=== PATIENT | male | born 2000 | race African-American/Black ===

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

== ENCOUNTER 2018-03-19 02:08 | Emergency (ER) | payer SELFPAY ==
[~2018-03-19] VITALS: Ht 180.3 cm; Wt 142.9 kg
[~2018-03-19 02:08] MED LIST changes: +CYCL10TA9 PO; +NAPR-1071 PO; +PRD20T PO
[2018-03-19] MEDS ORDERED: IBUPROFEN 800 MG (MOTRIN) TAB PO STA (02:45)
[2018-03-19] MEDS ORDERED: ACETAMINOPHEN 500 MG TAB (TYLENOL) PO STA (02:45)
[2018-03-19] MEDS ORDERED: RX-OSELTAMIVIR 75 MG (TAMIFLU) BOX OF 10 PO STA (03:19)
--- NOTE | 2018-03-19 03:20 | ED Cough/URI ---
General Chief Complaint: Cough/Cold/Flu Symptoms Stated Complaint: COUGHING,POSS FEVER 102. Source: patient History of Present Illness Date Seen by Provider: Mar 19, 2018 Time Seen by Provider: 02:40 Initial Comments PT ARRIVES VIA POV FROM HOME WITH MOM, WHO IS ALSO BEING SEEN FOR SAME MOM HAS BEEN SICK FOR A WEEK PT JUST STARTED HAVING SYMPTOMS TUESDAY NIGHT 03/17/18 C/O COUGH AND CONGESTION--NON-PRODUCTIVE C/O FEVER --WAS 102 AT 2000 WHILE AT WORK TONIGHT--BOTH PT AND MOM WORK AT [employer]. C/O BODY ACHES C/O HEADACHE C/O SORE THROAT TOOK TYLENOL AT 2000 AT WORK TONIGHT, OTHERWISE HAS NOT TAKEN ANYTHING FOR SYMPTOMS PCP: DR. Valorie CORRAL Allergies and Home Medications Allergies Coded Allergies: No Known Drug Allergies (Unverified , 09/28/16) Home Medications Cyclobenzaprine HCl 10 Mg Tablet, 10 MG PO Q8H PRN for SPASMS Prescribed by: JANA PEREIRA on 11/29/162226 Naproxen 500 Mg Tablet, 500 MG PO BID Prescribed by: JANA PEREIRA on 11/29/162226 Oseltamivir Phosphate 75 Mg Cap, 75 MG PO BID Prescribed by: MATT DE LEON on 03/19/185 Prednisone 20 Mg Tab, 40 MG PO DAILY Prescribed by: JANA PEREIRA on 11/29/162226 Patient Home Medication List Home Medication List Reviewed: Yes Review of Systems Review of Systems Constitutional: see HPI, fever EENTM: see HPI, nose congestion, throat pain Respiratory: see HPI, cough; No short of breath, No wheezing Cardiovascular: no symptoms reported Gastrointestinal: no symptoms reported Genitourinary: no symptoms reported Musculoskeletal: see HPI (BODY ACHES) Skin: no symptoms reported Psychiatric/Neurological: See HPI, Headache Hematologic/Lymphatic: No Symptoms Reported Immunological/Allergic: no symptoms reported Past Fzunjea-Ouhwro-Hmbxse Hx Patient Social History Alcohol Use: Denies Use Recreational Drug Use: No Smoking Status: Never a Smoker 2nd Hand Smoke Exposure: No Recent Foreign Travel: No Contact w/Someone Who Travel: No Recent Hopitalizations: No Immunizations Up To Date Tetanus Booster (TDap): Less than 5yrs PED Vaccines UTD: Yes Seasonal Allergies Seasonal Allergies: No Past Medical History Surgeries: Yes (BMT) Ear Surgery Respiratory: No Cardiac: No Neurological: No Reproductive Disorders: No Sexually Transmitted Disease: No Genitourinary: No Gastrointestinal: No Musculoskeletal: No Endocrine: No HEENT: Yes Chronic Ear Infection, Tonsilitis Cancer: No Psychosocial: No Integumentary: No Blood Disorders: No Family Medical History No Pertinent Family Hx Physical Exam Vital Signs - First Documented Capillary Refill : Height: 5'10.00" Weight: 289lbs. 0oz. 131.517125xc; 35.15 BMI Method:Stated General Appearance: WD/WN, no apparent distress HEENT: PERRL/EOMI, TMs normal, other (NASAL MUCOSAL EDEMA AND CLEAR POST NASAL DRAINAGE. SLIGHT ERYTHEMA TO POSTERIOR PHARYNX) Neck: normal inspection Respiratory: normal breath sounds, no respiratory distress, no accessory muscle use Cardiovascular: regular rate, rhythm, no murmur Gastrointestinal: non tender, soft Extremities: normal inspection, normal capillary refill Neurologic/Psychiatric: fueler II-XII nml as tested, no motor/sensory deficits, alert, normal mood/affect, oriented x 3 Skin: normal color, warm/dry; No rash Progress/Results/Core Measures Suspected Sepsis SIRS Temperature: Pulse: Respiratory Rate: Blood Pressure / Mean: Results/Orders Lab Results Laboratory Tests Test 03/19/18 02:59 Range/Units Group A Streptococcus Screen NEGATIVE NEGATIVE Micro Results Microbiology 03/19/18 Influenza Types A,B Antigen (SAUL) - Final, Complete My Orders Orders - MATT DE LEON DO Influenza A And B Antigens (03/19/18 02:37) Rapid Strep A Screen (03/19/18 02:45) Acetaminophen Tablet (Tylenol Tablet) (03/19/18 02:45) Ibuprofen Tablet (Motrin Tablet) (03/19/18 02:45) Rx-Oseltamivir Caps (Rx-Tamiflu Caps) (03/19/18 03:19) Oseltamivir 75 Mg Capsule (Tamiflu 75 (03/19/18 03:30) Oseltamivir 75 Mg Capsule (Tamiflu 75 (03/19/18 03:25) Medications Given in ED Current Medications Medications Dose Ordered Sig/Elliot Route Start Time Stop Time Status Last Admin Dose Admin Oseltamivir Phosphate 75 mg ONCE ONCE PO 03/19/18 03:30 03/19/18 03:31 DC 03/19/18 03:29 75 MG Vital Signs/I&O 03/19/18 03/19/18 03/19/18 02:28 02:28 03:33 Temp 102.3 102.4 Pulse 97 97 Resp 19 18 B/P (MAP) 150/71 (97) 124/51 (75) Pulse Ox 97 98 O2 Delivery Room Air Room Air Room Air Capillary Refill : Departure Impression Primary Impression: Influenza-like syndrome Disposition: HOME, SELF-CARE Condition: Stable Departure-Patient Inst. Referrals: SANJUANA CORRAL MD (PCP/Family) Primary Care Physician Patient Instructions: Flu, Adult (DC) Add. Discharge Instructions: TAKE TAMIFLU TWICE A DAY FOR 5 DAyS LOTS OF CLEAR LIQUIDS TYLENOL 1 GRAM / MOTRIN 800 MG 4 TIMES A DAY FOR PAIN OR FEVER OVER THE COUNTER MEDICATIONS FOR COUGH AND CONGESTION FOLLOW UP WITH YOUR DR IN 3-4 DAYS IF NO BETTER All discharge instructions reviewed with patient and/or family. Voiced understanding. Scripts Oseltamivir Phosphate (Tamiflu) 75 Mg Cap 75 MG PO BID, #10 CAP Prov: MATT DE LEON DO 03/19/18 MATT DE LEON DO Mar 19, 2018 03:19
[2018-03-19] MEDS ORDERED: OSELTAMIVIR 75 MG (TAMIFLU) CAPSULE ONE (03:25)
[2018-03-19] MEDS ORDERED: OSLT75C PO (03:25)
[2018-03-19] MEDS ORDERED: OSELTAMIVIR 75 MG (TAMIFLU) CAPSULE PO ONE (03:30)
[2018-03-19 03:33] VITALS: BP 124/51
== END 2018-03-19 03:33 | disposition home or self-care (01) ==
LOC: EDUNIT# 02:08 → ER 02:12
DX: J10.1 Influenza due to other identified influenza virus with other respiratory manifestations (principal); Z79.52 Long term (current) use of systemic steroids
CPT/HCPCS: 87430; 87804

== ENCOUNTER 2020-05-08 20:31 | Emergency (ER) | payer SELFPAY ==
[~2020-05-08] VITALS: Ht 180.3 cm; Wt 160.0 kg
[~2020-05-08 20:31] MED LIST changes: +OSLT75C PO
[2020-05-08] MEDS ORDERED: TETRACAINE 0.5% OPHTH SOLN 4 ML BTL (SINGLE DOSE ONLY) ONE (20:43)
[2020-05-08] MEDS ORDERED: FLUORESCEIN (FLUOR-I-STRIPS) 1 MG STRP ONE (20:43)
--- NOTE | 2020-05-08 20:53 | ED EENT ---
History of Present Illness General Chief Complaint: Eye Problems Stated Complaint: R EYE PAIN Source: patient Exam Limitations: no limitations History of Present Illness Date Seen by Provider: May 08, 2020 Time Seen by Provider: 20:29 Initial Comments The patient presents to the ER by private conveyance with chief complaint of painful welt on the very front of his eye over the pupil on the right side. He woke up with it this morning. He does not recall getting anything in his eye or striking his eye. He does not ever have a history of problems with his vision before. He has a little blurriness but no double vision. No other significant medical history. Follows with Jermain Love. Allergies and Home Medications Allergies Coded Allergies: No Known Drug Allergies (Unverified , 09/28/16) Home Medications Cyclobenzaprine HCl 10 Mg Tablet, 10 MG PO Q8H PRN for SPASMS Prescribed by: JANA PEREIRA on 11/29/162226 Naproxen 500 Mg Tablet, 500 MG PO BID Prescribed by: JANA PEREIRA on 11/29/162226 Oseltamivir Phosphate 75 Mg Cap, 75 MG PO BID Prescribed by: MATT DE LEON on 03/19/18 0325 Prednisone 20 Mg Tab, 40 MG PO DAILY Prescribed by: JANA PEREIRA on 11/29/162226 Patient Home Medication List Home Medication List Reviewed: Yes Review of Systems Review of Systems Constitutional: No chills, No fever Eyes: See HPI; Denies Blindness; Blurred Vision Ears: Denies Dizziness, Denies Pain Nose: denies clots, denies congestion Mouth: denies clots, denies clear discharge Throat: denies neck stiffness, denies painful swallowing Respiratory: No dyspnea on exertion, No hemoptysis Cardiovascular: No chest pain, No palpitations All Other Systems Reviewed Negative Unless Noted: Yes Past Alfkjrj-Zjtohp-Oicsvz Hx Patient Social History Alcohol Use: Denies Use Recreational Drug Use: No Smoking Status: Never a Smoker 2nd Hand Smoke Exposure: No Recent Foreign Travel: No Contact w/Someone Who Travel: No Recent Hopitalizations: No Immunizations Up To Date Tetanus Booster (TDap): Less than 5yrs PED Vaccines UTD: Yes Seasonal Allergies Seasonal Allergies: No Past Medical History Surgeries: Yes (BMT) Ear Surgery Respiratory: No Cardiac: No Neurological: No Reproductive Disorders: No Sexually Transmitted Disease: No Genitourinary: No Gastrointestinal: No Musculoskeletal: No Endocrine: No HEENT: Yes Chronic Ear Infection, Tonsilitis Cancer: No Psychosocial: No Integumentary: No Blood Disorders: No Family Medical History No Pertinent Family Hx Physical Exam Vital Signs Vital Signs - First Documented 05/08/20 20:40 Temp 36.2 Pulse 83 Resp 18 B/P (MAP) 145/86 (105) Pulse Ox 98 Height, Weight, BMI Height: 5'11.00" Weight: 315lbs. 0oz. 142.094814pm; 35.15 BMI Method:Stated General Appearance: WD/WN, mild distress Eyes: right eye other (Cloudy vesicle over the cornea covering the pupil on the right eye with no other obvious defect, foreign debris etc. Injected conjunctive with some tearing.); left eye normal inspection; bilateral eye PERRL, bilateral eye EOMI Ears: bilateral ear auricle normal, bilateral ear canal normal, bilateral ear TM normal Nose: normal inspection; No active bleeding, No discharge Mouth/Throat: normal mouth inspection, pharynx normal, dental tenderness Neck: non-tender, full range of motion, supple Cardiovascular: normal peripheral pulses, regular rate, rhythm Respiratory: no respiratory distress, no accessory muscle use Progress/Results/Core Measures Results/Orders My Orders Orders - SUJEY CERDA Tetracaine 0.5% Ophth Lori Sdv (Tetracai (05/08/20 21:00) Fluorescein Strips ([id number]) (05/08/20 21:00) Fluorescein Strips ([id number]) (05/08/20 20:43) Tetracaine 0.5% Ophth Lori Sdv (Tetracai (05/08/20 20:43) Herpes Simplex Culture (05/08/20 21:17) Rx-Ofloxacin 0.3% Ophth Soln (Rx-Ocuflox (05/09/20 00:00) Medications Given in ED Current Medications Medications Dose Ordered Sig/Elliot Route Start Time Stop Time Status Last Admin Dose Admin Fluorescein Sodium 1 mg ONCE ONCE OU 05/08/20 21:00 05/08/20 21:01 DC 05/08/20 20:58 1 MG Tetracaine HCl 4 ml ONCE ONCE OU 05/08/20 21:00 05/08/20 21:01 DC 05/08/20 20:47 4 ML Vital Signs/I&O 05/08/20 20:40 Temp 36.2 Pulse 83 Resp 18 B/P (MAP) 145/86 (105) Pulse Ox 98 Progress Progress Note #1: Time: 20:50 Progress Note Perhaps he has injured his eye versus there could be herpetic or other viral vesicular lesion. Plan to stain his eye with tetracaine and fluorescein and examined with a Matson lamp and then will discuss the case with optometry. Progress Note #2: Time: 21:05 Progress Note After fluorescein stain was applied we reexamined the eye using a Matson lamp and was not terribly impressed with a dendritic, geographic pattern. Rather it is a cloudy opaque raised vesicle about 1 mm by about 2 to 3 mm wide round irregular. It appears to be fixed to the cornea. We discussed the case with Dr. Paz and he suggests the most common things are HSV and improper contact wear. The patient does not wear any kind of corrective lenses and denies a history of cold sores or herpes. We discussed him going up to the clinic to be seen by Jackson rivera and the patient says he is going to see if he can get a ride from his mother and will let us know. Progress Note #3: Time: 21:33 Progress Note After the patient had a chance to discuss the case with his mother they would prefer to follow-up with Dr. Godoy. We impressed upon him that we would encourage them to see someone nicole however if they will call him in the morning and relay that the ER told them to go directly to an men's leather dress belt maker and can get seen this week that is acceptable. We have told him to return to the ER if his symptoms worsen. We will also provide him with Dr. Paz's phone number in case they would prefer to follow-up with him. Departure Impression Primary Impression: Eye infection Qualified Codes: H44.001 - Unspecified purulent endophthalmitis, right eye Additional Impression: Keratitis Disposition: 01 HOME, SELF-CARE Condition: Stable Departure-Patient Inst. Decision time for Depature: 21:35 Referrals: KELL PAZ OD, CHAD C MD (PCP/Family) Primary Care Physician Patient Instructions: Corneal Ulcer (DC) Add. Discharge Instructions: I am not certain what the diagnosis of your eye is. It could be a viral or bacterial infection so we will start you on an antibiotic drop. 2 drops of ofloxacin in your right eye every 4 hours while awake until you see the men's leather dress belt maker. Call Dr. Godoy and request follow-up tomorrow within the next 1 day. Alternatively you may call Dr. Paz for follow-up if Dr. Godoy does not have availability. Tylenol and ibuprofen as necessary for pain. Do not rub your eye. We sent off a test for HSV 1 and 2. The result will be back in about 2 to 3 days. All discharge instructions reviewed with patient and/or family. Voiced understanding. Work/School Note: Work Release Form Date Seen in the Emergency Department: May 08, 2020 Return to Work: May 12, 2020 Restrictions: No Restrictions SUJEY CERDA May 08, 2020 20:53
[2020-05-08] MEDS ORDERED: FLUORESCEIN (FLUOR-I-STRIPS) 1 MG STRP OU ONE (21:00)
[2020-05-08] MEDS ORDERED: TETRACAINE 0.5% OPHTH SOLN 4 ML BTL (SINGLE DOSE ONLY) OU ONE (21:00)
[2020-05-08 21:52] VITALS: BP 138/74
[2020-05-09] MEDS ORDERED: RX-OFLOXACIN 0.3% OPHTH SOLN 5 ML OP SCH
== END 2020-05-08 21:53 | disposition home or self-care (01) ==
LOC: EDUNIT# 20:31 → ER 20:33
DX: H16.9 Unspecified keratitis (principal); Z79.52 Long term (current) use of systemic steroids
CPT/HCPCS: 87254